=== PATIENT | male | born 1975 | race Two or more races ===

== ENCOUNTER 2018-04-10 01:15 | Inpatient (IN) | payer OTHER ==
[2018-04-10] MEDS ORDERED: ONDANSETRON 4 MG INJ IV (02:00)
[2018-04-10] MEDS ORDERED: NITROGLYCERIN (SL) 0.4 MG TAB SL (02:00)
[2018-04-10] MEDS ORDERED: morphine 2 MG INJ IV (02:00)
[2018-04-10 05:38] LABS: WHITE BLOOD COUNT 7.1 10^3/ul (4.8-10.8)
[2018-04-10 05:38] LABS: ADD MAN DIFF? NO; BASOPHIL # 0.1 10^3/ul (0.0-0.1); EOSINOPHILS # 0.1 10^3/ul (0.0-0.5); HEMATOCRIT 43.2 % (42.0-52.0); HEMOGLOBIN 14.6 g/dl (14.0-18.0); LYMPHOCYTES # 2.5 10^3/ul (0.8-2.9); LYMPHOCYTES % 35.3 % (15.0-51.0); MEAN CORPUSCULAR HEMOGLOBIN 29.4 pg (29.0-33.0); MEAN CORPUSCULAR HGB CONC 33.8 g/dl (32.0-37.0); MEAN CORPUSCULAR VOLUME 86.9 fl (82.0-101.0); MEAN PLATELET VOLUME 10.7 fl (7.4-10.4); MONOCYTE # 0.7 10^3/ul (0.3-0.9); NEUTROPHIL # 3.7 10^3/ul (1.6-7.5); NEUTROPHILS % 51.6 % (39.0-77.0); PLATELET COUNT 273 10^3/UL (140-415); RED BLOOD COUNT 4.97 10^6/ul (4.70-6.10); RED CELL DISTRIBUTION WIDTH 12.6 % (11.5-14.5)
[2018-04-10 06:17] LABS: TROPONIN-I 0.021 ng/ml (0.000-0.120)
[2018-04-10 06:21] LABS: ALANINE AMINOTRANSFERASE 38 IU/L (13-69); ALBUMIN 3.7 g/dl (3.3-4.9); ALBUMIN/GLOBULIN RATIO 1.27; ALKALINE PHOSPHATASE 62 IU/L (42-121); ANION GAP 13 (8-16); ASPARTATE AMINO TRANSFERASE 21 IU/L (15-46); BILIRUBIN,INDIRECT 0.6 mg/dl (0-1.1); BILIRUBIN,TOTAL 0.6 mg/dl (0.2-1.3); BLOOD UREA NITROGEN 11 mg/dl (7-20); CALCIUM 9.1 mg/dl (8.4-10.2); CARBON DIOXIDE 29 mmol/L (21-31); CHLORIDE 106 mmol/L (97-110); CHOL/HDL RATIO 4.4 RATIO; CHOLESTEROL 157 mg/dl (100-200); CREATININE 0.77 mg/dl (0.61-1.24); GLUCOSE 87 mg/dl (70-220); HDL CHOLESTEROL 35 mg/dl (27-67); LDL CHOLESTEROL,CALCULATED 105 mg/dl; PHOSPHORUS 4.2 mg/dl (2.5-4.9); POTASSIUM 4.2 mmol/L (3.5-5.1); SODIUM 144 mmol/L (135-144); TOTAL PROTEIN 6.6 g/dl (6.1-8.1); TRIGLYCERIDES 85 mg/dl (0-149)
[2018-04-10] MEDS ORDERED: ALBUTEROL/IPRATROPIUM (NEB) 3 ML AMP HHN (06:30)
[2018-04-10 07:06] LABS: HEMOGLOBIN A1C 5.3 % (0-5.9)
[2018-04-10] MEDS ORDERED: morphine LIQ (10 MG/5 ML) CUP PO (07:32)
[2018-04-10] MEDS: ASPIRIN 81 MG TAB PO (08:59)
[2018-04-10] MEDS: METOPROLOL 25 MG TAB PO (09:00)
[2018-04-10] MEDS: HEPARIN 5,000 UNIT/0.5 ML VIAL SC (09:05)
[2018-04-10 12:31] LABS: TROPONIN-I 0.022 ng/ml (0.000-0.120)
[2018-04-10] MEDS ORDERED: ATORVASTATIN 10 MG TAB PO (21:00)
[2018-04-11] MEDS: ALPRAZOLAM 0.25 MG TAB PO (00:24)
[2018-04-11] MEDS: ASPIRIN 81 MG TAB PO (08:53)
[2018-04-11] MEDS: LISINOPRIL 5 MG TAB PO (14:45)
[2018-04-12] MEDS ORDERED: LISINOPRIL 5 MG TAB PO (09:00)
== END 2018-04-11 15:13 | disposition home or self-care (01) | DRG 313 ==
LOC: MS3 01:15
PROVIDERS: Internal Medicine
DX: R07.9 Chest pain, unspecified (principal); I10 Essential (primary) hypertension; E78.5 Hyperlipidemia, unspecified; M79.602 Pain in left arm; M94.0 Chondrocostal junction syndrome [Tietze]
CPT/HCPCS: 71046; 80053; 80061; 83036; 83735; 84100; 84443; 84484; 85025; 93005; 93306